=== PATIENT | female | born 1995 | race Caucasian/White ===

== ENCOUNTER 2017-11-16 14:22 | Emergency (ER) | payer SELFPAY ==
[~2017-11-16] VITALS: Ht 157.5 cm; Wt 47.7 kg
[2017-11-16] MEDS ORDERED: ACYC200L PO (14:34)
[2017-11-16 15:14] VITALS: BP 118/81
[2017-11-16] MEDS ORDERED: ACYC200C PO (15:31)
[2017-11-16] MEDS ORDERED: ACYC400T PO (15:33)
== END 2017-11-16 15:48 | disposition home or self-care (01) ==
LOC: EMS 14:24
DX: A60.00 Herpesviral infection of urogenital system, unspecified (principal); Z76.0 Encounter for issue of repeat prescription
CPT/HCPCS: 99283

== ENCOUNTER 2018-11-09 21:42 | Emergency (ER) | payer SELFPAY ==
[~2018-11-09] VITALS: Ht 157.5 cm; Wt 50.0 kg
[~2018-11-09 21:42] MED LIST: ACYC400T PO
[2018-11-09] MEDS ORDERED: ZINC OXIDE 20% 30 GM OINTMENT TP ONE (22:30)
[2018-11-09 22:32] VITALS: BP 123/67
== END 2018-11-09 22:45 | disposition home or self-care (01) ==
LOC: EMS 21:43
DX: S31.41XA Laceration without foreign body of vagina and vulva, initial encounter (principal); X58.XXXA Exposure to other specified factors, initial encounter; Y93.89 Activity, other specified; Y92.89 Other specified places as the place of occurrence of the external cause; Y99.8 Other external cause status

== ENCOUNTER 2018-11-11 01:13 | Emergency (ER) | payer SELFPAY ==
[~2018-11-11] VITALS: Ht 154.9 cm; Wt 50.0 kg
[2018-11-11] MEDS ORDERED: BACITRACIN 0.9 GM PACKET OINTMENT TP ONE (03:41)
[2018-11-11 03:47] VITALS: BP 110/68
== END 2018-11-11 03:50 | disposition home or self-care (01) ==
LOC: EMS 01:15
DX: S30.814D Abrasion of vagina and vulva, subsequent encounter (principal); N90.89 Other specified noninflammatory disorders of vulva and perineum; X58.XXXD Exposure to other specified factors, subsequent encounter